=== PATIENT | female | born 1975 | race Caucasian/White ===

== ENCOUNTER → 2017-02-28 | Outpatient (CLI) | payer BC ==
[~2017-02-28] MED LIST: ACHYD1T PO; DCS100C PO; FAMO20TA5 PO; IBP800T PO; METH250T PO; PREN1TAB39 PO
--- NOTE | 2017-02-28 08:41 | Diagnostic Imaging Report ---
EXAMINATION: Bilateral diagnostic mammogram with tomography evaluation. The current study was also evaluated with a Computer Aided Detection (CAD) system. COMPARISON: 12/15/2010. INDICATION: Palpable lump in the inferior aspect of the left breast. FINDINGS: The breasts are composed of heterogeneously dense parenchyma which may decrease mammographic sensitivity. The inferior left breast palpable area is marked with no underlying abnormality seen. No significant change is seen from the previous exam. IMPRESSION: Stable mammographic findings with no evidence of malignancy. An ultrasound evaluation is pending. ACR BI-RADS Category 0: Incomplete. (Needs additional imaging evaluation). Result letter will be mailed to the patient. Note: At least 10% of breast cancer is not imaged by mammography. Dictated by: Dictated on workstation # [id number]
--- NOTE | 2017-02-28 09:13 | Diagnostic Imaging Report ---
EXAMINATION: Left breast ultrasound. INDICATION: Lump at the 6 o'clock zone. FINDINGS: The area of lump was scanned with no underlying abnormality seen. IMPRESSION: Negative study. Clinical followup for the palpable area is recommended. ACR BI-RADS Category 1: Negative. Dictated by: Dictated on workstation # [id number]
== END ==
LOC: RAD 08:09
PROVIDERS: ATTEND Obstetrics & Gynecology
DX: N63.42 Unspecified lump in left breast, subareolar (principal)
CPT/HCPCS: 76642; 77066

== ENCOUNTER 2017-03-13 12:15 | Outpatient (CLI) | payer BC ==
[~2017-03-13] VITALS: Ht 157.5 cm; Wt 58.1 kg
[2017-03-13] MEDS ORDERED: NFNEB10T PO (12:23)
[2017-03-13 12:36] VITALS: BP 129/86
[2017-03-13 12:46] LABS: BASOPHILS # (AUTO) 0.1 10^3/uL (0.0-0.1); BASOPHILS % (AUTO) 2 % (0-10); EOSINOPHILS # (AUTO) 0.1 10^3/uL (0.0-0.3); EOSINOPHILS % (AUTO) 2 % (0-10); HEMATOCRIT 21 % (35-52); LYMPHOCYTES # (AUTO) 1.3 X 10^3 (1.0-4.0); LYMPHOCYTES % (AUTO) 22 % (12-44); MEAN CORPUSCULAR HEMOGLOBIN 16 PG (25-34); MEAN CORPUSCULAR HGB CONC 26 G/DL (32-36); MEAN CORPUSCULAR VOLUME 59 FL (80-99); MEAN PLATELET VOLUME 9.6 FL (7.4-10.4); MONOCYTES # (AUTO) 0.4 X 10^3 (0.0-1.0); MONOCYTES % (AUTO) 7 % (0-12); NEUTROPHILS # (AUTO) 4.1 X 10^3 (1.8-7.8); NEUTROPHILS % (AUTO) 68 % (42-75); PLATELET COUNT 409 10^3/uL (130-400); RED BLOOD COUNT 3.61 10^6/uL (4.35-5.85); RED CELL DISTRIBUTION WIDTH 22.1 % (10.0-14.5)
[2017-03-13 12:48] LABS: HEMOGLOBIN 5.6 G/DL (11.5-16.0)
== END 2017-03-13 12:40 | disposition home or self-care (01) ==
LOC: PREOP 12:15
PROVIDERS: ATTEND Obstetrics & Gynecology
DX: Z01.812 Encounter for preprocedural laboratory examination (principal); N93.8 Other specified abnormal uterine and vaginal bleeding; D64.9 Anemia, unspecified
CPT/HCPCS: 36415; 85025; 86850; 86900; 86901; 87081

== ENCOUNTER 2017-03-14 09:08 | Outpatient (RCR) | payer BC ==
[~2017-03-14] VITALS: Ht 157.5 cm; Wt 58.1 kg
[2017-03-14] VITALS (11 sets, daily range): BP systolic 110–115; BP diastolic 68–75
[~2017-03-14 09:08] MED LIST changes: +NFNEB10T PO
[2017-03-14] MEDS ORDERED: FUROSEMIDE 40 MG/4 ML INJ (LASIX) IVP ONE (10:00)
[2017-03-14] MEDS ORDERED: ACETAMINOPHEN 325 MG TABLET/CAPLET (TYLENOL) PO ONE (10:00)
[2017-03-14] MEDS ORDERED: NS IV 500 ML 500 ML IV SCH (10:00)
[2017-03-14] MEDS: diphenhydrAMINE 25 MG TAB (BENADRYL) PO SCH ×2 (10:19→13:28)
[2017-03-14] MEDS ORDERED: ACETAMINOPHEN 325 MG TABLET/CAPLET (TYLENOL) PO NR (13:30)
[2017-03-14] MEDS ORDERED: FUROSEMIDE 40 MG/4 ML INJ (LASIX) IVP NR (13:30)
--- NOTE | 2017-03-15 10:11 | Physician Query-Final Dx ---
ANYA MEDINA 03/15/17 1011: Clinic Account Progress/Dx Physician Query: Please give diagnosis Please give a diagnosis for the blood transfusion thank you Date of Service Mar 14, 2017 at 09:08 JOSSY MARTIN MD 03/16/17 0705: Clinic Account Progress/Dx DIAGNOSIS: Diagnosis anemia due to menometrorrhagia ANYA MEDINA Mar 15, 2017 10:11 JOSSY MARTIN MD Mar 16, 2017 07:05
[2017-03-16] MEDS ORDERED: IBUP-1780 PO (12:14)
[2017-03-16] MEDS ORDERED: DOCU-143 PO (12:14)
[2017-03-16] MEDS ORDERED: OXYC-465 PO (12:14)
[2017-03-17] MEDS ORDERED: NORG1TAB14 PO (09:00)
[2017-03-17] MEDS ORDERED: OXYC-465 PO (09:00)
== END 2017-06-12 | disposition home or self-care (01) ==
LOC: SDC 09:08
PROVIDERS: ATTEND Obstetrics & Gynecology
DX: D64.9 Anemia, unspecified (principal); N92.1 Excessive and frequent menstruation with irregular cycle
CPT/HCPCS: 36430; 86850; 86900; 86901; 86920

== ENCOUNTER 2017-03-16 11:00 | Day surgery (SDC) | payer BC ==
[~2017-03-16] VITALS: Ht 157.5 cm; Wt 58.1 kg
[2017-03-16 11:15] VITALS: BP 148/86
[2017-03-16] MEDS: LACTATED RINGERS 1,000 ML IV PRN ×2 (11:15→14:30)
[2017-03-16] MEDS ORDERED: LIDOCAINE PF 2% 5 ML (XYLOCAINE) VIAL ONE (11:20)
[2017-03-16] MEDS ORDERED: DEXAMETHASONE 10 MG/ML (DECADRON) 1 ML VIAL ONE (11:20)
[2017-03-16] MEDS ORDERED: SEVOFLURANE (ULTANE) 15 ML INHAL SOLN ONE ×5 (11:20→13:23)
[2017-03-16] MEDS ORDERED: ONDANSETRON 4 MG/2 ML (SDV) Z0FRAN ONE (11:20)
[2017-03-16] MEDS ORDERED: proPOfol 200 MG/20 ML (DIPRIVAN) VIAL IV ONE (11:20)
[2017-03-16] MEDS ORDERED: fentaNYL INJECTION 100 MCG/2 ML AMP ONE ×2 (11:21→12:56)
[2017-03-16] MEDS ORDERED: MIDAZOLAM 2 MG/2 ML (VERSED) VIAL ONE (11:21)
[2017-03-16] MEDS ORDERED: ROCURONIUM 50 MG/5 ML (ZEMURON) VIAL IV ONE (11:21)
[2017-03-16] MEDS ORDERED: NEOSTIGMINE (BLOXIVERZ ) 1 MG/1ML 10 ML VIAL ONE (11:27)
[2017-03-16] MEDS ORDERED: GLYCOPYRROLATE 0.2 MG/ML (ROBINUL) 2 ML VIAL ONE (11:27)
[2017-03-16] MEDS ORDERED: BUP/EPI 0.5% 1:200,000 (MARCAINE) 10ML VIAL IJ ONE (11:55)
[2017-03-16] MEDS ORDERED: CATHETER FLUSH 10 ML SYR IV PRN (12:00)
[2017-03-16] MEDS ORDERED: ceFAZolin INJECTION 1,000 MG in NS (IVPB) 50 ML IV ONE (12:00)
--- NOTE | 2017-03-16 12:09 | Progress Note-Pre Operative ---
Pre-Operative Progress Note H&P Reviewed The H&P was reviewed, patient examined and no changes noted. Date Seen by Provider: Mar 16, 2017 Time Seen by Provider: 12:09 Date H&P Reviewed: Mar 16, 2017 Time H&P Reviewed: 12:09 Pre-Operative Diagnosis: DUB/menometrorrhagia/complex intrauterine mass/severe anemia JOSSY MARTIN MD Mar 16, 2017 12:09 pm
--- NOTE | 2017-03-16 12:10 | Progress Note-Post Operative ---
Post-Operative Progess Note Surgeon (s)/Manager Management (s) Surgeon JOSSY MARTIN MD Manager Management: none Pre-Operative Diagnosis DUB/menometrorrhagia/complex intrauterine mass/severe anemia Post-Operative Diagnosis same with pathology pending Procedure & Operative Findings Date of Procedure 03/16/17 Procedure Performed/Findings total laparoscopic hysterectomy with bilateral salpingectomy Anesthesia Type GETA Estimated Blood Loss Estimated blood loss (mL): minimal Specimens/Packing Specimens Removed uterus and fallopian tubes Packing: none JOSSY MARTIN MD Mar 16, 2017 12:10
[2017-03-16] MEDS ORDERED: IBUP-1780 PO (12:14)
[2017-03-16] MEDS ORDERED: OXYC-465 PO (12:14)
[2017-03-16] MEDS ORDERED: DOCU-143 PO (12:14)
[2017-03-16] MEDS ORDERED: KETOROLAC 30 MG/ML VIAL IVP SCH (12:15)
[2017-03-16] MEDS ORDERED: BUTORPHANOL INJ 2 MG/ML (STADOL) VIAL IV PRN (12:15)
[2017-03-16] MEDS ORDERED: ONDANSETRON 4 MG/2 ML (SDV) Z0FRAN IVP PRN ×2 (12:15→13:00)
[2017-03-16] MEDS ORDERED: oxyCODONE/APAP 10/325MG (PERCOCET 10) TABLET PO PRN (12:15)
--- NOTE | 2017-03-16 12:16 | Discharge Instructions ---
Discharge Instructions Discharge Medications New, Converted or Re-Newed RX: RX on Chart Patient Instructions Patient Instructions: as directed Return to The Hospital For: as directed Activity & Diet Discharge Diet: No Restrictions Activity as Tolerated: No Orders-Post D/C & Referrals Follow Up Appt: return to clinic on Sunday, March 19, 2017 at 930 a.m. for staple removal Call to make follow up appt. for patient in 4 weeks. Activity: Rest for 24 hours, than as tolerated. Wound Care: May remove Band-Aid tomorrow. Replace as desired. Keep incisions clean and dry. Wash daily with soap and water. Please call in RX to patient pharmacy. Diet: As tolerated-Clear Liquids only if nauseated. May shower or tub bathe as desired. No driving for 24 hours, no alcoholic beverages for 24 hours, and nothing per vagina (no tampons, douching, or intercourse) for 8 weeks. Patient to return to the clinic as soon as possible for: Temperature greater than 101F, Severe Pain, Foul discharge from incision or vagina, Excessive Bleeding (more than a period). JOSSY MARTIN MD Mar 16, 2017 12:16 pm
[2017-03-16] MEDS: ceFAZolin 1 GM/NS 50 ML IVPB IV ONE ×4 (12:25→12:40)
[2017-03-16] MEDS ORDERED: morphine INJ 10 MG/ML 1ML (SYR OR VIAL) ONE (13:53)
[2017-03-16] MEDS ORDERED: KETOROLAC 30 MG/ML VIAL ONE (13:54)
[2017-03-16] MEDS ORDERED: WATER (STERILE) FOR INJECTION 0 ML ONE (13:54)
[2017-03-16] MEDS ORDERED: ESTROGENS CONJ IV 25 MG/5 ML (PREMARIN) VIAL ONE (13:54)
[2017-03-16] MEDS: KETOROLAC 30 MG/ML VIAL IVP SCH ×2 (14:20→20:36)
[2017-03-16] MEDS ORDERED: HYDROmorphone (DILAUDID) 2 MG/ML VIAL ONE (14:32)
[2017-03-16] MEDS: HYDROmorphone (DILAUDID) 2 MG/ML VIAL IVP PRN ×4 (14:40→15:10)
[2017-03-16 15:47] VITALS: BP 117/69
[2017-03-16] MEDS ORDERED: ESTROGENS CONJ IV 25 MG/5 ML (PREMARIN) VIAL IV ONE (18:30)
[2017-03-16 20:00] VITALS: BP 126/80
[2017-03-16] MEDS: D5 LR IV SOLUTION 1,000 ML IV SCH ×2 (20:10→20:37)
[2017-03-16] MEDS ORDERED: WATER (STERILE) FOR INJECTION 10 ML ONE (22:01)
--- NOTE | 2017-03-16 22:27 | OPERATIVE REPORT ---
DATE OF SERVICE: 03/16/2017 PREOPERATIVE DIAGNOSES: Dysfunctional uterine bleeding, menorrhagia and severe anemia secondary to the bleeding. POSTOPERATIVE DIAGNOSES: Dysfunctional uterine bleeding, menorrhagia and severe anemia secondary to the bleeding with extensive pelvic adhesions and extensive ovarian endometriosis. OPERATIVE PROCEDURE: Total laparoscopic hysterectomy with bilateral salpingo-oophorectomy. OPERATIVE DESCRIPTION: With the patient in the supine position under satisfactory general anesthesia, she was repositioned in dorsal lithotomy position in the [facility] and prepped and draped in the usual fashion for vaginal surgery and abdominal surgery. The urinary bladder was drained with the Sanderson catheter to dependent drainage. A weighted speculum was placed in the posterior fornix of the vagina. The cervix exposed and grasped anteriorly with single tooth tenaculum. Uterus sounded to 14 cm with uterine sound. The cervix was then serially dilated with Konstantin dilators to accommodate a Alie II manipulator which was placed using a 6 mm x 8 cm probe and a 30 mm colpotomy ring. Sutures of #1 Vicryl were placed at 3 o'clock and 9 o'clock position of the cervix for stabilization. The patient brought in low dorsal lithotomy position. A 12 mm incision made approximately 6 cm superior to the umbilicus, 8 mm incisions were made 9 cm lateral to the umbilicus and just above the level of the umbilicus. All the incision sites were infiltrated with 0.5% Marcaine with epinephrine prior to incision. A Veress needle was placed through the midline incision correct placement confirmed with the water drop test. The abdomen was insufflated with 2.4 liters of carbon dioxide then the Veress needle was removed and a 12 mm Optiview laparoscopic port placed. The abdominal wall was transilluminated and 8 mm ports were placed in the lateral incisions. The patient was placed in Trendelenburg allowing the bowel to spill out of the pelvis and then operative instruments were placed and attached and the hysterectomy was initiated. The pelvis was first examined. The uterus was quite boggy quite large and quite mottled in appearance consistent with extensive adenomyosis. Both ovaries were densely adherent to the posterior lower uterine segment and into the cul-de-sac. There was obvious implants of endometriosis on both ovaries. The patient had requested ovaries be removed if they appear abnormal and leave them in situ if they were normal in appearance. With this finding, decision was made to go ahead with bilateral oophorectomy concurrent with the hysterectomy and salpingectomy. The appendix could not be located and identified. It appeared to have been surgically absent. This patient did have 4 C-sections, 3 of which I did, Dr. Kaminski was known to take out the appendix quite frequently when he did a and it is quite possible that is where her appendix was. The procedure was initiated first by taking down the adhesions of the ovaries to the posterior lower uterine segment and out of the cul-de-sac with the ovaries freed to the point where they could be elevated. Then, procedure was progressed by placing the vessel sealer on the right IP ligament, clamping, cauterizing and dividing across the IP ligament across the mesosalpinx across the round ligament and broad ligament down onto the cardinal ligament. The ureter seemed to be quite medial from the areas of dissection. Same procedure was performed on the left with the same result. Again, both ureters now were seemed to peristalsing well away from the areas it had been dissected. The anterior lower uterine segment was now divided. There were extensive adhesions on the anterior lower uterine segment from her previous C-sections and very careful meticulous dissection was undertaken to free the bladder, which was very closely involved in these adhesions with the bladder, dissected free and with no overt trauma to the bladder the bladder wall was completely intact. Then, the anterior lower uterine segment was palpated identifying the colpotomy ring to the vaginal wall. Colpotomy incision made in 12 o'clock position and continued circumferentially until the entire colpotomy ring was exposed then the uterus was removed through the vagina with the tubes and ovaries still attached. Vaginal cuff was then closed using two sutures of V-Loc kaitlin sutures starting first on the right angle and continuing to just past the midpoint and then from the left angle just past the midpoint ensuring inclusion of the uterine vessel pedicles in the beginning of the closure on each side. The ureters again were seemed to be well away from the area that were being sutured. The pelvis was now irrigated and examined for hemostasis. That was complete with no abnormal appearing pathology. Hemostasis assured and the procedure was terminated. The instruments were removed under direct vision as were the ports. The patient was brought out of Trendelenburg. The abdomen was evacuated and insufflating gas in the process of removing the instruments and ports. The skin incisions were closed with niesha. The fascia at the supraumbilical incision was closed with [id number] suture of 2-0 Vicryl. Speculum was placed in the vagina and the vaginal cuff examined, it was completely intact; however, there was some bleeding on the edge of the mucosa near the midpoint a [id number] suture of 3-0 Vicryl Rapide was placed ensuring complete hemostasis. Sanderson catheter was left to dependent drainage and was draining clear yellow urine. Sponge and needle counts were correct. Estimated blood loss was minimal. The patient was uneventfully awakened from her general anesthesia and transferred to recovery in stable condition. Job ID: [id number] DocumentID: [id number] Dictated Date: 03/16/2017 14:05:39 Head Of Sales Promotion Date: 03/16/2017 19:28:55 Dictated By: JOSSY MARTIN MD
[2017-03-17] VITALS: BP 112/78
[2017-03-17] MEDS ORDERED: ESTROGENS CONJ IV 25 MG/5 ML (PREMARIN) VIAL ONE (00:07)
--- OUTSIDE RECORDS SUMMARY | 2017-03-17 00:16 | XMS REPORT ---
Author [facility] [employer] Address Unknown Phone Unavailable Care Team Providers Care Gi Asst Name Role Phone IGOR LYNNE CP Unavailable Allergies, Adverse Reactions, Alerts Substance Reaction Event Type N.K.D.A. Info Not Available Non Drug Allergy Problems Problem Type Condition Code Onset Dates Condition Status Assessment Visit for TB skin test Z11.1 Active Problem Need for prophylactic vaccination and inoculation, Influenza V04.81 Active Medications No Known Medications Procedures Procedure Coding System Code Date TB INTRADERMAL TEST CPT-4 43161 Nov 11, 2015 Results No Known Results Summary Purpose [employer] Submission
--- OUTSIDE RECORDS SUMMARY | 2017-03-17 00:16 | XMS REPORT | Continuity of Care Document ---
Author Author [facility] Address Unknown Phone Unavailable Allergies There is no data. Medications There is no data. Problems Date Dx Coded Attending Type Code Diagnosis Diagnosed By 02/11/2013 IGOR LYNNE DO V04.81 FLU SHOT Procedures There is no data. Results There is no data. Encounters ACCT No. Visit Date/Time Discharge Status Pt. Type Provider Facility Loc./Unit Complaint [id number] 02/11/2013 17:30:00 02/11/2013 23:59:59 CLS Outpatient IGOR LYNNE DO
[2017-03-17] MEDS: KETOROLAC 30 MG/ML VIAL IVP SCH (02:37)
[2017-03-17 02:38] VITALS: BP 118/75
[2017-03-17 06:19] VITALS: BP 126/75
--- NOTE | 2017-03-17 08:56 | Progress Note-Standard ---
Standard Progress Note Progress Notes/Assess & Plan Date Seen by Provider: Mar 17, 2017 Time Seen by Provider: 08:54 Progress/Assessment & Plan this patient is without complaint. She is ambulating, tolerating by mouth well , has good pain control. the Sanderson catheter was removed at 6 a.m. she has not voided yet. patient denies chest pain, denies shortness of breath, denies nausea vomiting, and denies headache. Vital Signs Date Time Temp Pulse Resp B/P (MAP) Pulse Ox O2 Delivery O2 Flow Rate FiO2 03/17/17 06:19 98.1 81 20 126/75 (92) 98 03/17/17 02:38 98.1 65 18 118/75 (89) 98 03/17/17 00:00 97.0 61 16 112/78 (89) 99 Room Air 03/16/17 20:00 97.1 62 18 126/80 (95) 99 Room Air 03/16/17 16:40 Room Air 03/16/17 15:47 97.7 66 18 117/69 (85) 99 Room Air 03/16/17 11:15 99.4 74 16 148/86 (106) 98 Room Air I & O 03/17/17 07:00 Intake Total 1655 ml Output Total 2090 ml Balance -435 ml Laboratory Tests Test 03/16/17 11:07 03/16/17 12:08 Range/Units Urine Test NEGATIVE NEGATIVE Hemoglobin 10.0 #L 11.5-16.0 G/DL Hematocrit 29 L 35-52 % Vital signs are stable. Patient is afebrile. Patient's hemoglobin was 10 right ear to surgery and after receiving 3 units of packed red blood cells 2 days before surgery the abdomen is benign. Bowel sounds are present in all 4 quadrants. The incision is clean dry and intact. Extremities show no clubbing cyanosis. There is no Homans sign. Assessment and plan operative day number 1 doing well. Plan is for discharge home with follow-up in clinic after patient demonstrates adequate bladder function Final Diagnosis DUB/menometrorrhagia/severe anemia JOSSY MARTIN MD Mar 17, 2017 8:56 am
[2017-03-17 09:00] VITALS: BP 124/80
[2017-03-17] MEDS ORDERED: NORG1TAB14 PO (09:00)
[2017-03-17] MEDS ORDERED: DOCUSATE SODIUM 100 MG (COLACE) CAP PO SCH (09:00)
[2017-03-17] MEDS ORDERED: OXYC-465 PO (09:00)
[2017-03-17] MEDS ORDERED: IBUPROFEN 800 MG (MOTRIN) TAB PO ONE (09:09)
[2017-03-17 12:15] VITALS: BP 124/80
[2017-03-17] MEDS ORDERED: IBUPROFEN 800 MG (MOTRIN) TAB PO SCH (14:00)
== END 2017-03-17 12:15 | disposition home or self-care (01) ==
LOC: SDC 11:00 → WS 15:40 → SDC 03-17 12:15
PROVIDERS: ATTEND Obstetrics & Gynecology
DX: N93.8 Other specified abnormal uterine and vaginal bleeding (principal); N92.0 Excessive and frequent menstruation with regular cycle; D50.0 Iron deficiency anemia secondary to blood loss (chronic); N80.0 Endometriosis of uterus; N80.1 Endometriosis of ovary; N72 Inflammatory disease of cervix uteri; D25.0 Submucous leiomyoma of uterus; N83.8 Other noninflammatory disorders of ovary, fallopian tube and broad ligament; N83.201 Unspecified ovarian cyst, right side; N83.202 Unspecified ovarian cyst, left side; I10 Essential (primary) hypertension; Z79.899 Other long term (current) drug therapy
CPT/HCPCS: 36415; 84703; 85014; 85018; 87081; 94664

== ENCOUNTER → 2017-05-04 | Outpatient (CLI) | payer BC ==
[~2017-05-04] VITALS: Ht 157.5 cm; Wt 58.1 kg
[~2017-05-04] MED LIST changes: +DOCU-143 PO; +IBUP-1780 PO; +NORG1TAB14 PO; +OXYC-465 PO
[2017-05-04 11:42] VITALS: BP 118/67
[2017-05-04 11:55] VITALS: BP 112/68
--- NOTE | 2017-05-04 18:15 | Diagnostic Imaging Report ---
INDICATION: Right thyroid nodule. EXAMINATION: Sonographic guidance was provided for Dr. Thomas for a right thyroid mass FNA. FINDINGS: There is a mixed solid and cystic mass in the right lobe of the thyroid, measuring 1.6 x 1.2 x 1.0 cm. IMPRESSION: Right thyroid FNA by Dr. Thomas utilizing ultrasound guidance. Dictated by: Dictated on workstation # [id number]
== END ==
LOC: RAD 11:09
PROVIDERS: ATTEND Otolaryngology Otolaryngology/Facial Plastic Surgery
DX: E04.1 Nontoxic single thyroid nodule (principal)
CPT/HCPCS: 76942

== ENCOUNTER 2018-12-12 14:44 | Outpatient (RCR) | payer BC | END 2019-03-12 | disposition home or self-care (01) | DX: M54.2 Cervicalgia (principal); M54.6 Pain in thoracic spine ==

== ENCOUNTER → 2019-09-19 | Outpatient (CLI) | payer BC ==
--- NOTE | 2019-09-22 08:51 | Diagnostic Imaging Report ---
INDICATION: Routine screening. Comparison is made with prior mammogram from 02/28/2017. 2-D and 3-D bilateral screening mammography was performed with CAD. Both breasts are heterogeneously dense, limiting the sensitivity of mammography. The parenchymal pattern is stable. No dominant mass or malignant-appearing microcalcifications are identified. The axillae are unremarkable. IMPRESSION: BI-RADS Category 1 No mammographic features suspicious for malignancy are identified. Dictated by: Dictated on workstation # [id number]
== END ==
LOC: RAD 15:01
PROVIDERS: ATTEND Obstetrics & Gynecology
DX: Z12.31 Encounter for screening mammogram for malignant neoplasm of breast (principal)
CPT/HCPCS: 77063; 77067

== ENCOUNTER → 2022-01-10 | Outpatient (CLI) | payer BC ==
[~2022-01-10] MED LIST changes: -OXYC-465 PO; +OXYC-556 PO
--- NOTE | 2022-01-10 16:05 | Diagnostic Imaging Report ---
INDICATION: Routine screening. COMPARISON: 09/19/2019 and 02/28/2017. TECHNIQUE: 2D and 3D bilateral screening mammography was performed with CAD. FINDINGS: Scattered fibroglandular densities are identified bilaterally. The parenchymal pattern is stable. No mass or malignant-appearing microcalcifications are seen. The axillae are unremarkable. IMPRESSION: No mammographic features suspicious for malignancy are identified. ACR BI-RADS Category 1: Negative. Result letter will be mailed to the patient. Note: At least 10% of breast cancer is not imaged by mammography. Dictated by: Dictated on workstation # [id number]
== END ==
LOC: RAD 07:30
PROVIDERS: ATTEND Obstetrics & Gynecology
DX: Z12.31 Encounter for screening mammogram for malignant neoplasm of breast (principal)
CPT/HCPCS: 77063; 77067